=== PATIENT | female | born 1965 | race Caucasian/White ===

== ENCOUNTER 2019-11-21 16:55 | Emergency (ER) | payer MEDICAID ==
[~2019-11-21] VITALS: Ht 177.8 cm; Wt 138.0 kg
[~2019-11-21 16:55] MED LIST: DIPH-115 PO; DULO-31 PO; ESTR2TAB PO; GABA-338 PO; GLYC1TAB23 PO; NAPR-996 PO; ZES10T PO
[2019-11-21 17:40] LABS: BASOPHILS # (AUTO) 0.1 X10'3 (0-0.2); BASOPHILS % (AUTO) 0.7 % (0-1); EOSINOPHILS # (AUTO) 0.1 X10'3 (0-0.9); EOSINOPHILS % (AUTO) 0.6 % (0-6); HEMATOCRIT 36.4 % (35.0-45.0); HEMOGLOBIN 12.2 g/dl (12.0-16.0); LYMPHOCYTES # (AUTO) 2.7 X10'3 (1.1-4.8); LYMPHOCYTES % (AUTO) 26.1 % (21-51); MEAN CORPUSCULAR HEMOGLOBIN 28.5 PG (27.0-31.0); MEAN CORPUSCULAR HGB CONC 33.4 g/dL (33.0-36.5); MEAN CORPUSCULAR VOLUME 85.3 FL (78-98); MONOCYTES # (AUTO) 0.5 X10'3 (0-0.9); MONOCYTES % (AUTO) 4.8 % (2-12); NEUTROPHILS % (AUTO) 67.8 % (42-75); PLATELET COUNT 368 X10'3 (140-440); RED BLOOD COUNT 4.27 X10'6 (4.20-5.60); RED CELL DISTRIBUTION WIDTH 13.8 % (11.5-14.5); WHITE BLOOD COUNT 10.4 X10'3 (4.5-11.0)
[2019-11-21 17:56] LABS: ALANINE AMINOTRANSFERASE 40 U/L (12-78); ALBUMIN 3.5 G/DL (3.4-5.0); ALBUMIN/GLOBULIN RATIO 0.9 (1.1-1.5); ALKALINE PHOSPHATASE 47 IU/L (46-116); AMYLASE 30 U/L (25-115); ANION GAP 4 (8-16); ASPARTATE AMINO TRANSFERASE 18 U/L (10-37); BILIRUBIN,TOTAL 0.5 MG/DL (0.1-1.0); BLOOD UREA NITROGEN 10 MG/DL (7-18); BUN/CREATININE RATIO 11.6 (6.6-38.0); CHLORIDE 106 MMOL/L (99-107); CREATININE 0.86 MG/DL (0.40-0.90); GLUCOSE 128 MG/DL (70-104); LIPASE 223 U/L (73-393); POTASSIUM 3.5 MMOL/L (3.5-5.1); SODIUM 143 MMOL/L (135-145); TOTAL CARBON DIOXIDE 32.6 MMOL/L (24-32); TOTAL PROTEIN 7.2 G/DL (6.4-8.2); eGFR 69 ML/MIN
[2019-11-21] MEDS ORDERED: ondansetron/PF 4mg/2ml inj IV ONE (18:00)
[2019-11-21] MEDS ORDERED: morphine 4 MG/ML inj SYRINge IV ONE ×2 (18:00→19:10)
[2019-11-21 18:05] LABS: CLARITY,URINE CLEAR (Clear); COLOR,URINE STRAW (Yellow); GLUCOSE, URINE NEGATIVE (Neg); KETONES,URINE NEGATIVE (Neg); LEUKOCYTE ESTERASE ,URINE NEGATIVE (Neg); NITRITES, URINE NEGATIVE (Neg); OCCULT BLOOD,URINE TRACE-INTACT (Neg); PH,URINE 6.5 (4.8-8.0); PROTEIN,URINE NEGATIVE (Neg); UROBILINOGEN,URINE 0.2 E.U/dL (0.2-1.0)
[2019-11-21 18:06] LABS: UA COLLECTION TYPE CLN CATCH MIDSTREAM
[2019-11-21 18:10] LABS: BACTERIA,URINE FEW /HPF (Neg); MUCUS STRANDS FEW /LPF (Neg); RBC,URINE 0-2 /HPF (0-2); SQUAMOUS EPITHELIAL CELL,UR FEW /LPF (FEW); WBC,URINE 0-4 /HPF (0-4)
[2019-11-21] MEDS ORDERED: ketorolac tromethamine 15mg/ml inj. IV ONE (18:55)
[2019-11-21] MEDS ORDERED: pantoprazole 40 MG vial IV ONE (20:15)
[2019-11-21] MEDS ORDERED: PANT-47 PO (20:23)
[2019-11-21 21:15] VITALS: BP 134/86
== END 2019-11-21 21:16 | disposition home or self-care (01) ==
LOC: ER 16:56
DX: R10.11 Right upper quadrant pain (principal); R30.0 Dysuria; G43.909 Migraine, unspecified, not intractable, without status migrainosus; K21.9 Gastro-esophageal reflux disease without esophagitis; G89.29 Other chronic pain; I10 Essential (primary) hypertension; F41.9 Anxiety disorder, unspecified; F31.9 Bipolar disorder, unspecified; G62.9 Polyneuropathy, unspecified; Z90.710 Acquired absence of both cervix and uterus; Z98.890 Other specified postprocedural states; Z86.69 Personal history of other diseases of the nervous system and sense organs; Z79.899 Other long term (current) drug therapy
CPT/HCPCS: 36415; 74176; 76700; 80053; 81001; 82150; 83690; 84484; 85025; 93005; 96374; 96375; 96376; 99285; C9113; J1885; J2270; J2405

== ENCOUNTER 2020-08-04 06:10 | Day surgery (SDC) | payer MEDICAID ==
[~2020-08-04] VITALS: Ht 175.3 cm; Wt 135.3 kg
[2020-08-04] VITALS (11 sets, daily range): BP systolic 109–140; BP diastolic 59–82
[~2020-08-04 06:10] MED LIST changes: +PANT-47 PO
[2020-08-04] MEDS ORDERED: normal saline 1,000 ML IV SCH (06:40)
[2020-08-04] MEDS ORDERED: diphenhydrAMINE 25mg capsule PO PRN (06:40)
[2020-08-04] MEDS ORDERED: LIDOcaine/PRILOcaine 5gm cream TP ONE (06:45)
[2020-08-04 07:09] LABS: BASOPHILS # (AUTO) 0.1 X10'3 (0-0.2); BASOPHILS % (AUTO) 0.9 % (0-1); EOSINOPHILS # (AUTO) 0.1 X10'3 (0-0.9); EOSINOPHILS % (AUTO) 0.9 % (0-6); HEMATOCRIT 37.3 % (35.0-45.0); HEMOGLOBIN 12.5 g/dl (12.0-16.0); LYMPHOCYTES # (AUTO) 2.8 X10'3 (1.1-4.8); LYMPHOCYTES % (AUTO) 39.8 % (21-51); MEAN CORPUSCULAR HEMOGLOBIN 30.1 PG (27.0-31.0); MEAN CORPUSCULAR HGB CONC 33.6 g/dL (33.0-36.5); MEAN CORPUSCULAR VOLUME 89.5 FL (78-98); MEAN PLATELET VOLUME 7.9 FL (7.4-10.4); MONOCYTES # (AUTO) 0.3 X10'3 (0-0.9); MONOCYTES % (AUTO) 4.7 % (2-12); NEUTROPHILS # (AUTO) 3.8 X10'3 (1.8-7.7); NEUTROPHILS % (AUTO) 53.7 % (42-75); PLATELET COUNT 284 X10'3 (140-440); RED BLOOD COUNT 4.16 X10'6 (4.20-5.60); RED CELL DISTRIBUTION WIDTH 13.9 % (11.5-14.5); WHITE BLOOD COUNT 7.1 X10'3 (4.5-11.0)
[2020-08-04] MEDS ORDERED: iohexol 350MG/ML 100ml bottle IV ONE ×2 (07:16→08:55)
[2020-08-04] MEDS ORDERED: iohexol 350 MG/ML 50ML vial IV ONE (07:16)
[2020-08-04] MEDS ORDERED: midazolam 2 mg/2 ml injection ONE ×4 (07:16→08:58)
[2020-08-04] MEDS ORDERED: LIDOcaine 1% (10mg/ml)w/preservative injection 20ml MDV ONE (07:16)
[2020-08-04] MEDS ORDERED: fentaNYL/PF 50MCG/1 ML 2ML syringe ONE (07:16)
[2020-08-04] MEDS ORDERED: heparin 1,000unit/ml 10ml vial 10 ML ONE (07:16)
[2020-08-04 07:19] LABS: ALBUMIN 3.5 G/DL (3.4-5.0); ANION GAP 9 (8-16); BLOOD UREA NITROGEN 8 MG/DL (7-18); CALCIUM 9.5 MG/DL (8.5-10.1); CHLORIDE 105 MMOL/L (99-107); CREATININE 0.89 MG/DL (0.40-0.90); GLUCOSE 174 MG/DL (70-104); MAGNESIUM 1.8 MG/DL (1.5-2.4); POTASSIUM 3.7 MMOL/L (3.5-5.1); SODIUM 143 MMOL/L (135-145); eGFR 66 ML/MIN
[2020-08-04] MEDS ORDERED: ALBU8HFA PO (07:25)
[2020-08-04] MEDS ORDERED: BACL-11 PO (07:25)
[2020-08-04] MEDS ORDERED: ATOR20TA PO (07:25)
[2020-08-04] MEDS ORDERED: CETI-91 PO (07:25)
[2020-08-04] MEDS ORDERED: METF850T PO (07:25)
[2020-08-04] MEDS ORDERED: ASPI-1265 PO (07:25)
[2020-08-04] MEDS ORDERED: SYN0.112T PO (07:25)
[2020-08-04] MEDS ORDERED: FLU VACC QS2020-21(6MOS UP)/PF 60 MCG/0.5 ML SYRINGE IMVAC ONE (07:35)
[2020-08-04] MEDS ORDERED: pneumococcal 23-VAL P-sac vacc 25 mcg/0.5ml vial IMVAC ONE (07:35)
[2020-08-04] MEDS ORDERED: verapamil 2.5 mg/ml inj IV ONE (07:48)
[2020-08-04] MEDS ORDERED: nitroGLYCERIN-Tridil 50MG/D5W 250 ML IV ONE (07:48)
[2020-08-04] MEDS ORDERED: HYDROmorphone 1 mg/ml syringe ONE (08:45)
[2020-08-04] MEDS ORDERED: ticagrelor 90mg tablet ONE (09:41)
== END 2020-08-04 13:30 | disposition home or self-care (01) ==
LOC: SSTAY O 06:10
PROVIDERS: ATTEND Internal Medicine Cardiovascular Disease
DX: R94.39 Abnormal result of other cardiovascular function study (principal); I25.10 Atherosclerotic heart disease of native coronary artery without angina pectoris; E66.01 Morbid (severe) obesity due to excess calories; Z68.37 Body mass index [BMI] 37.0-37.9, adult; Z23 Encounter for immunization; E11.9 Type 2 diabetes mellitus without complications; I10 Essential (primary) hypertension; E78.5 Hyperlipidemia, unspecified; E03.9 Hypothyroidism, unspecified; J44.9 Chronic obstructive pulmonary disease, unspecified; K21.9 Gastro-esophageal reflux disease without esophagitis; G47.30 Sleep apnea, unspecified; Z90.710 Acquired absence of both cervix and uterus; Z98.890 Other specified postprocedural states; Z79.899 Other long term (current) drug therapy; Z79.84 Long term (current) use of oral hypoglycemic drugs; Z79.82 Long term (current) use of aspirin; Z82.49 Family history of ischemic heart disease and other diseases of the circulatory system
CPT/HCPCS: 36415; 80048; 82948; 83735; 85025; 85610; 90732; 92978; 93005; 93458; 99152; 99153; C1725; C1751; C1753; C1769; C1874; C1894; C9600; G0008; G0009; J1170; J1644; J2001; J2250; J3010; J7030; Q0163; Q2039; Q9967; A4620; A6258; J3490

== ENCOUNTER 2021-04-16 00:36 | Inpatient (IN) | payer MEDICAID ==
[~2021-04-16] VITALS: Ht 175.3 cm; Wt 130.9 kg
[2021-04-16] VITALS (10 sets, daily range): BP systolic 114–145; BP diastolic 67–86
[~2021-04-16 00:36] MED LIST changes: +ALBU8HFA PO; +ASPI-1265 PO; +ATOR20TA PO; +BACL-11 PO; +CETI-91 PO; -GLYC1TAB23 PO; +METF850T PO; +SYN0.112T PO
[2021-04-16] MEDS ORDERED: diltiazem 5mg/ml 5ml inj. IV ONE ×2 (01:00→01:10)
[2021-04-16] MEDS ORDERED: normal saline 1000ml 1,000 ML IV ONE (01:00)
[2021-04-16] MEDS ORDERED: aspirin 325mg tablet PO ONE (01:05)
[2021-04-16 01:21] LABS: ALANINE AMINOTRANSFERASE 45 U/L (12-78); ALKALINE PHOSPHATASE 74 IU/L (46-116); ANION GAP 10 (8-16); ASPARTATE AMINO TRANSFERASE 21 U/L (10-37); BILIRUBIN,TOTAL 0.4 MG/DL (0.1-1.0); BLOOD UREA NITROGEN 11 MG/DL (7-18); BUN/CREATININE RATIO 11.6 (6.6-38.0); CALCIUM 9.4 MG/DL (8.5-10.1); CHLORIDE 104 MMOL/L (99-107); CREATININE 0.95 MG/DL (0.40-0.90); GLUCOSE 158 MG/DL (70-104); POTASSIUM 3.2 MMOL/L (3.5-5.1); SODIUM 143 MMOL/L (135-145); TOTAL CARBON DIOXIDE 28.7 MMOL/L (24-32); TOTAL PROTEIN 8.2 G/DL (6.4-8.2); eGFR 61 ML/MIN
[2021-04-16 01:30] LABS: BASOPHILS # (AUTO) 0.1 X10'3 (0-0.2); BASOPHILS % (AUTO) 0.6 % (0-1); EOSINOPHILS # (AUTO) 0.1 X10'3 (0-0.9); EOSINOPHILS % (AUTO) 1.1 % (0-6); HEMATOCRIT 40.3 % (35.0-45.0); HEMOGLOBIN 13.7 g/dl (12.0-16.0); LYMPHOCYTES # (AUTO) 4.1 X10'3 (1.1-4.8); MEAN CORPUSCULAR HEMOGLOBIN 30.1 PG (27.0-31.0); MEAN CORPUSCULAR HGB CONC 34.1 g/dL (33.0-36.5); MEAN CORPUSCULAR VOLUME 88.4 FL (78-98); MEAN PLATELET VOLUME 8.2 FL (7.4-10.4); MONOCYTES # (AUTO) 0.5 X10'3 (0-0.9); MONOCYTES % (AUTO) 4.8 % (2-12); NEUTROPHILS # (AUTO) 5.3 X10'3 (1.8-7.7); NEUTROPHILS % (AUTO) 52.5 % (42-75); PLATELET COUNT 345 X10'3 (140-440); RED BLOOD COUNT 4.56 X10'6 (4.20-5.60); RED CELL DISTRIBUTION WIDTH 14.5 % (11.5-14.5); WHITE BLOOD COUNT 10.1 X10'3 (4.5-11.0)
[2021-04-16] MEDS: metoprolol tartrate 1mg/ml inj IV SCH ×3 (01:40→01:55)
[2021-04-16] MEDS ORDERED: potassium Cl 20 mEq SR tablet PO STA (01:47)
[2021-04-16] MEDS ORDERED: etomidate 2mg/ml inj. IV ONE (01:55)
[2021-04-16] MEDS ORDERED: ondansetron/PF 4mg/2ml inj IV PRN (02:45)
[2021-04-16] MEDS ORDERED: ondansetron 4mg rapidly disintigrating tab PO PRN (02:45)
[2021-04-16] MEDS ORDERED: acetaminophen 325mg tablet PO PRN ×2 (02:45)
[2021-04-16] MEDS ORDERED: magnesium hydroxide 30ml (MOM) UD suspension PO PRN (02:45)
[2021-04-16] MEDS: normal saline 1000ml 1,000 ML IV SCH ×3 (02:45→22:09)
[2021-04-16] MEDS ORDERED: HYDROcodone/acetaminophen 5mg/325mg tablet PO PRN (02:45)
[2021-04-16] MEDS ORDERED: diphenhydrAMINE 50 mg/ml inj IV PRN (02:45)
[2021-04-16] MEDS ORDERED: acetaminophen 650mg rectal suppository RC PRN (02:45)
[2021-04-16] MEDS ORDERED: diphenhydrAMINE 25mg capsule PO PRN (02:45)
[2021-04-16] MEDS ORDERED: morphine 2 MG/ML inj. syringe IV PRN ×2 (02:45)
[2021-04-16] MEDS ORDERED: HYDROmorphone inj. 0.5 MG/0.5 ML DISP.SYRIN IV PRN (02:45)
[2021-04-16] MEDS ORDERED: potassium Cl 40MEQ/1/2NS 520ml 520 ML IV PRN ×2 (02:45)
[2021-04-16] MEDS ORDERED: bisacodyl 10mg suppository rectal RC PRN (02:45)
[2021-04-16] MEDS ORDERED: mag hydrox/Alum hydrox/simeth 30ml oral suspension PO PRN (02:45)
[2021-04-16] MEDS ORDERED: potassium Cl 20 mEq SR tablet PO PRN ×2 (02:45)
[2021-04-16] MEDS ORDERED: dextrose ORAL solution 15 GM/59 ML bottle PO PRN ×2 (02:50)
[2021-04-16] MEDS ORDERED: MESSAGE TO PHARMACY PO ONE (02:50)
[2021-04-16] MEDS ORDERED: dextrose 50%-water 50ml dispensing syringe IV PRN ×2 (02:50)
[2021-04-16] MEDS ORDERED: heparin 10,000 units/1 ML INJ IV ONE (02:50)
[2021-04-16] MEDS ORDERED: heparin 10,000 units/1 ML INJ IV PRN (02:50)
[2021-04-16] MEDS ORDERED: PERFLUTREN PROTEIN-A MICROSPHR (Optison) 0.22 MG/ML 3ML VIAL IV PRN (02:50)
[2021-04-16] MEDS ORDERED: insulin Lispro (HumaLOG) vial - multi-dose SQ SCH (02:50)
[2021-04-16] MEDS ORDERED: heparin 25,000 UNIT/250ml bag 250 ML IV SCH (02:50)
[2021-04-16] MEDS ORDERED: glucagon, human recombinant 1mg kit SUBCUT PRN (02:50)
[2021-04-16 03:23] LABS: CLARITY,URINE SLIGHTLY CLOUDY (Clear); COLOR,URINE YELLOW (Yellow); GLUCOSE, URINE NEGATIVE (Neg); KETONES,URINE NEGATIVE (Neg); LEUKOCYTE ESTERASE ,URINE SMALL (Neg); NITRITES, URINE POSITIVE (Neg); OCCULT BLOOD,URINE NEGATIVE (Neg); PROTEIN,URINE NEGATIVE (Neg); UROBILINOGEN,URINE 0.2 E.U/dL (0.2-1.0)
[2021-04-16 03:33] LABS: URINE AMPHETAMINE SCREEN NEGATIVE (Neg); URINE BARBITUATE SCREEN NEGATIVE (Neg); URINE BENZODIAZEPINES SCREEN NEGATIVE (Neg); URINE CANNABINOID SCREEN NEGATIVE (Neg); URINE COCAINE SCREEN NEGATIVE (Neg); URINE METHADONE SCREEN NEGATIVE (Neg); URINE OPIATE SCREEN NEGATIVE (Neg); URINE PHENCYCLIDINE SCREEN NEGATIVE (Neg)
[2021-04-16 03:50] LABS: UA COLLECTION TYPE CLN CATCH MIDSTREAM
[2021-04-16 04:18] LABS: BACTERIA,URINE 4+ /HPF (Neg); MUCUS STRANDS NONE SEEN /LPF (Neg); RBC,URINE NONE SEEN /HPF (0-2); SQUAMOUS EPITHELIAL CELL,UR FEW /LPF (FEW); WBC,URINE 20-30 /HPF (0-4)
[2021-04-16 05:03] LABS: PARTIAL THROMBOPLASTIN TIME 25 SECONDS (22-32)
[2021-04-16 05:05] LABS: D-DIMER < 0.19 MG/L FEU (0-0.50)
[2021-04-16 05:16] LABS: CREATINE KINASE 175 U/L (26-192); LIPASE 93 U/L (73-393); MAGNESIUM 1.9 MG/DL (1.5-2.4); PHOSPHORUS 4.8 MG/DL (2.3-4.5)
[2021-04-16 05:17] LABS: ETHANOL < 0.010 GM/DL (0.0-0.010)
[2021-04-16 05:51] LABS: HEMOGLOBIN A1C 6.1 % (4.5-6.2)
[2021-04-16] MEDS ORDERED: TICA90TA PO (07:34)
[2021-04-16] MEDS ORDERED: atorvastatin 20mg tablet PO SCH ×2 (08:00→21:00)
[2021-04-16] MEDS ORDERED: duloxetine 30mg CAPSULE.DR PO SCH (08:00)
[2021-04-16] MEDS ORDERED: aspirin 81mg tab.chew PO SCH (08:00)
[2021-04-16] MEDS ORDERED: levoTHYROXINE 112mcg tablet PO SCH (08:00)
[2021-04-16] MEDS ORDERED: baclofen 10mg tablet PO SCH (08:00)
[2021-04-16] MEDS ORDERED: metFORMIN 850mg tablet PO SCH (08:00)
[2021-04-16] MEDS ORDERED: CefTRIAXone 1000mg IM Kit (w/lidocaine diluent) IM ONE (08:00)
[2021-04-16] MEDS ORDERED: magnesium Cl slow-release 64mg tablet PO PRN (08:20)
[2021-04-16] MEDS ORDERED: magnesium 4gm in 100ml NS 100 ML IV PRN (08:20)
[2021-04-16] MEDS ORDERED: aminophylline 250mg/10ml inj. IV PRN (08:25)
[2021-04-16] MEDS ORDERED: regadenoson 0.4mg/5ml syringe IV ONE (08:25)
[2021-04-16] MEDS ORDERED: metoprolol tartrate 1mg/ml inj IV PRN (08:25)
[2021-04-16] MEDS ORDERED: nitroGLYCERIN 0.4mg SUBLingual tab SL PRN ×2 (08:25→18:30)
[2021-04-16] MEDS: K and/or MAG REPLACEMENT MC SCH ×3 (08:50→20:19)
[2021-04-16] MEDS: docusate sod 100mg capsule PO SCH ×2 (09:00→19:28)
[2021-04-16] MEDS: pantoprazole 40mg Tablet.DR PO SCH (09:01)
[2021-04-16] MEDS: metoprolol tartrate 50mg tablet PO SCH (09:01)
[2021-04-16] MEDS: gabapentin 300mg capsule PO SCH ×3 (09:01→20:17)
[2021-04-16] MEDS: CefTRIAXone/D5W-Rocephin 1gm 50 ML IV SCH (10:14)
--- NOTE | 2021-04-16 10:35 | NUR ---
Patient in room ED 5. I have received report from Betsey Rn and had the opportunity to ask questions and assume patient care.
[2021-04-16] MEDS ORDERED: [UNRECOGNIZED DRUG - REMARK] PO (10:54)
[2021-04-16] MEDS ORDERED: PANT-47 PO (10:54)
[2021-04-16] MEDS ORDERED: IBUP-1986 PO (10:54)
[2021-04-16] MEDS ORDERED: THEA200C PO (10:54)
[2021-04-16] MEDS ORDERED: MULT-1085 PO (10:54)
[2021-04-16] MEDS ORDERED: AMBEREN PO (10:54)
[2021-04-16] MEDS ORDERED: HYDR12.55 PO (10:54)
[2021-04-16] MEDS ORDERED: METF-438 PO (10:54)
[2021-04-16] MEDS ORDERED: MELA10TA2 PO (10:54)
[2021-04-16] MEDS ORDERED: BIOT5000 PO (10:54)
[2021-04-16] MEDS ORDERED: DULA0.75 SQ (10:54)
[2021-04-16] MEDS ORDERED: CYAN50005 PO (10:54)
[2021-04-16] MEDS ORDERED: NITR0.4T51 SL (10:54)
[2021-04-16] MEDS ORDERED: LISI20TA28 PO (10:54)
[2021-04-16] MEDS ORDERED: CHOL200013 PO (10:54)
[2021-04-16] MEDS ORDERED: ATOR40TA71 PO (10:54)
[2021-04-16] MEDS ORDERED: ASPI81TA47 PO (10:54)
[2021-04-16] MEDS ORDERED: BUSP10TA10 PO (10:54)
[2021-04-16] MEDS ORDERED: LACT1CAP65 PO (10:56)
[2021-04-16] MEDS ORDERED: ASCO500C17 PO (10:56)
[2021-04-16] MEDS: ticagrelor 90mg tablet PO SCH ×2 (11:08→19:28)
--- NOTE | 2021-04-16 14:28 | NUR ---
Md Reynolds PAGER ID: [phone] MESSAGE: Sagar IBARRAHumza Ext [phone]. Pt [id number] Hany Eckert Joy results negative, trops negative x4. Do you want to discharge?
--- NOTE | 2021-04-16 18:33 | NUR ---
Patient in room PCU 3014. I have received report from Phong KEMP and had the opportunity to ask questions and assume patient care.
--- NOTE | 2021-04-16 18:50 | NUR ---
Problems reprioritized. Patient report given, questions answered & plan of care reviewed with Vivienne KEMP. Patient stable at transfer of care.
[2021-04-16] MEDS: lactobacillus rhamnosus 10,000 MMU CELLS/CAPSULE PO SCH (19:28)
[2021-04-16] MEDS: metFORMIN 500mg tablet PO SCH (19:28)
[2021-04-16] MEDS: baclofen 10mg tablet PO SCH (19:31)
[2021-04-16] MEDS: heparin, porcine 5000 units/ml vial SQ SCH (19:32)
[2021-04-16] MEDS: busPIRone 5mg tablet PO SCH (20:17)
[2021-04-16] MEDS ORDERED: atorvastatin 20mg tablet PO ONE (21:00)
[2021-04-16] MEDS ORDERED: non-formulary drug (Melatonin 1 TAB) PO SCH (21:00)
[2021-04-16] MEDS ORDERED: pantoprazole 40mg Tablet.DR PO SCH (21:00)
[2021-04-16] MEDS ORDERED: insulin glargine (Lantus) pen - multi-dose SQ SCH (21:00)
[2021-04-16] MEDS ORDERED: [UNRECOGNIZED DRUG - OTHER] PO SCH (21:00)
[2021-04-16] MEDS ORDERED: temazepam 15mg capsule PO PRN (21:00)
[2021-04-16] MEDS ORDERED: THEANINE PO SCH (21:00)
[2021-04-16] MEDS: HYDROcodone/acetaminophen 10/325mg tab PO PRN (23:15)
[2021-04-17 02:00] VITALS: BP 145/82
[2021-04-17 06:00] VITALS: BP 147/77
--- NOTE | 2021-04-17 06:00 | NUR ---
Patient in room PCU 3014. I have received report from Vivienne KEMP and had the opportunity to ask questions and assume patient care.
--- NOTE | 2021-04-17 06:22 | NUR ---
Problems reprioritized. Patient report given, questions answered & plan of care reviewed with JUSTO Valentine
[2021-04-17 06:46] LABS: BASOPHILS % (AUTO) 0.4 % (0-1); EOSINOPHILS # (AUTO) 0.1 X10'3 (0-0.9); EOSINOPHILS % (AUTO) 1.4 % (0-6); HEMATOCRIT 32.6 % (35.0-45.0); LYMPHOCYTES # (AUTO) 3.5 X10'3 (1.1-4.8); LYMPHOCYTES % (AUTO) 41.4 % (21-51); MEAN CORPUSCULAR HEMOGLOBIN 29.9 PG (27.0-31.0); MEAN CORPUSCULAR HGB CONC 33.7 g/dL (33.0-36.5); MEAN CORPUSCULAR VOLUME 88.6 FL (78-98); MEAN PLATELET VOLUME 8.1 FL (7.4-10.4); MONOCYTES # (AUTO) 0.4 X10'3 (0-0.9); NEUTROPHILS # (AUTO) 4.4 X10'3 (1.8-7.7); NEUTROPHILS % (AUTO) 51.8 % (42-75); PLATELET COUNT 271 X10'3 (140-440); RED BLOOD COUNT 3.68 X10'6 (4.20-5.60); RED CELL DISTRIBUTION WIDTH 14.5 % (11.5-14.5); WHITE BLOOD COUNT 8.5 X10'3 (4.5-11.0)
[2021-04-17 07:13] LABS: ALANINE AMINOTRANSFERASE 42 U/L (12-78); ALBUMIN 3.1 G/DL (3.4-5.0); ALBUMIN/GLOBULIN RATIO 0.9 (1.1-1.5); ALKALINE PHOSPHATASE 53 IU/L (46-116); ANION GAP 8 (8-16); ASPARTATE AMINO TRANSFERASE 24 U/L (10-37); BILIRUBIN,TOTAL 0.4 MG/DL (0.1-1.0); BLOOD UREA NITROGEN 10 MG/DL (7-18); BUN/CREATININE RATIO 12.7 (6.6-38.0); CALCIUM 8.3 MG/DL (8.5-10.1); CHLORIDE 107 MMOL/L (99-107); CHOL/HDL RATIO 5.1 (0.00-4.99); CHOLESTEROL 152 MG/DL (0-200); CREATININE 0.79 MG/DL (0.40-0.90); GLUCOSE 106 MG/DL (70-104); HDL CHOLESTEROL 30 MG/DL (35-60); LDL CHOLESTEROL 87 MG/DL (50-100); MAGNESIUM 1.7 MG/DL (1.5-2.4); PHOSPHORUS 4.2 MG/DL (2.3-4.5); POTASSIUM 3.6 MMOL/L (3.5-5.1); SODIUM 143 MMOL/L (135-145); TOTAL PROTEIN 6.5 G/DL (6.4-8.2); TRIGLYCERIDES 230 MG/DL (20-135); eGFR 76 ML/MIN
[2021-04-17] MEDS ORDERED: multivitamins, therapeutics tablet PO SCH (08:00)
[2021-04-17] MEDS ORDERED: lisinopril 20mg tablet PO SCH (08:00)
[2021-04-17] MEDS: K and/or MAG REPLACEMENT MC SCH ×2 (08:00)
[2021-04-17] MEDS ORDERED: cholecalciferol (vitamin D3) 1,000 unit (25mcg) tablet PO SCH (08:00)
[2021-04-17] MEDS ORDERED: aspirin 81mg tablet.DR PO SCH ×2 (08:00)
[2021-04-17] MEDS ORDERED: non-formulary drug (Lactobacillus Acidophilus (Probiotic) 1 EACH) PO SCH (08:00)
[2021-04-17] MEDS ORDERED: CYANOCOBALAMIN PO SCH (08:00)
[2021-04-17] MEDS ORDERED: HYDROchlorothiazide 12.5mg capsule PO SCH (08:00)
[2021-04-17] MEDS ORDERED: AMBEREN PO SCH (08:00)
[2021-04-17] MEDS ORDERED: ascorbic acid 500mg tablet PO SCH (08:00)
[2021-04-17] MEDS: metFORMIN 500mg tablet PO SCH (08:13)
[2021-04-17] MEDS: docusate sod 100mg capsule PO SCH (08:14)
[2021-04-17] MEDS: pantoprazole 40mg Tablet.DR PO SCH (08:14)
[2021-04-17] MEDS: ticagrelor 90mg tablet PO SCH (08:15)
[2021-04-17] MEDS: metoprolol tartrate 50mg tablet PO SCH (08:15)
[2021-04-17] MEDS: HYDROcodone/acetaminophen 10/325mg tab PO PRN (08:16)
[2021-04-17] MEDS: gabapentin 300mg capsule PO SCH (08:17)
[2021-04-17] MEDS: busPIRone 5mg tablet PO SCH (08:17)
[2021-04-17] MEDS: lactobacillus rhamnosus 10,000 MMU CELLS/CAPSULE PO SCH (08:18)
[2021-04-17] MEDS: baclofen 10mg tablet PO SCH (08:19)
[2021-04-17] MEDS: CefTRIAXone/D5W-Rocephin 1gm 50 ML IV SCH (08:21)
[2021-04-17] MEDS: heparin, porcine 5000 units/ml vial SQ SCH (08:22)
[2021-04-17] MEDS ORDERED: LACT1CAP26 PO (08:39)
[2021-04-17] MEDS ORDERED: CEFD300C3 PO (08:39)
[2021-04-17] MEDS: normal saline 1000ml 1,000 ML IV SCH (09:08)
[2021-04-17 11:00] VITALS: BP 128/58
--- NOTE | 2021-04-17 12:39 | NUR ---
Patient stable for discharge per Dr. Reynolds. DC'd PIV wit canula intact and DC'd telemetry. Educated patient and spouse on discharge instructions, followup care, worsening symptoms as well as medication regimen. Medications transmitted to [facility] [address] per patient request. Patient was escorted to lobby by a patient patient care specialist for transport home by her spouse.
[2021-04-17] MEDS ORDERED: duloxetine 30mg CAPSULE.DR PO SCH (21:00)
[2021-04-17] MEDS ORDERED: atorvastatin 20mg tablet PO SCH (21:00)
== END 2021-04-17 12:20 | disposition home or self-care (01) | DRG 201 ==
LOC: ER 00:38 → ED HOLD 02:45 → PCU 3S 10:41
PROVIDERS: ADMIT Family Medicine; ATTEND Family Medicine
PROC: 4A02XM4 Measurement of Cardiac Total Activity, External Approach (ICD-10-PCS; principal; 2021-04-16)
PROC: 3E073KZ Introduction of Other Diagnostic Substance into Coronary Artery, Percutaneous Approach (ICD-10-PCS; 2021-04-16)
PROC: 5A2204Z Restoration of Cardiac Rhythm, Single (ICD-10-PCS; 2021-04-16)
DX: I48.91 Unspecified atrial fibrillation (principal); N17.9 Acute kidney failure, unspecified; E11.42 Type 2 diabetes mellitus with diabetic polyneuropathy; E66.01 Morbid (severe) obesity due to excess calories; E03.9 Hypothyroidism, unspecified; E86.0 Dehydration; E78.5 Hyperlipidemia, unspecified; E87.6 Hypokalemia; F31.9 Bipolar disorder, unspecified; F41.0 Panic disorder [episodic paroxysmal anxiety]; G43.909 Migraine, unspecified, not intractable, without status migrainosus; G40.909 Epilepsy, unspecified, not intractable, without status epilepticus; F41.9 Anxiety disorder, unspecified; K21.9 Gastro-esophageal reflux disease without esophagitis; M54.9 Dorsalgia, unspecified; G89.29 Other chronic pain; I10 Essential (primary) hypertension; I25.10 Atherosclerotic heart disease of native coronary artery without angina pectoris; N39.0 Urinary tract infection, site not specified; Z90.710 Acquired absence of both cervix and uterus; Z95.5 Presence of coronary angioplasty implant and graft; Z68.41 Body mass index [BMI] 40.0-44.9, adult; Z79.899 Other long term (current) drug therapy
CPT/HCPCS: 36415; 71045; 78452; 80053; 80061; 80305; 80320; 81001; 82550; 82948; 83036; 83690; 83735; 83880; 84100; 84443; 84484; 85025; 85379; 85610; 85730; 87077; 87081; 87088; 87186; 93005; 93017; 93306; 94760; 94799; 99285; A9500; G0378; J0696; J1644; J1815; J2785; J3490; J7030